=== PATIENT | female | born 1960 | race Caucasian/White ===

== ENCOUNTER → 2022-05-07 | Day surgery (SDC) | payer MEDICARE, OTHER ==
[~2022-05-07] VITALS: Ht 162.6 cm; Wt 59.1 kg
[~2022-05-07] MED LIST: ASPIRIN EC81 MG PO; ATORVASTATIN CA80 MG PO; BUSPAR5 MG PO; DICLOFENAC SODI75 MG PO; DULOXETINE HCL60 MG PO; GABAPENTIN300 MG PO; LEVOTHYROXINE125 MCG PO; LISINOPRIL5 MG PO; METHOCARBAMOL500 MG PO; MOTEGRITY2 MG PO; NEURONTIN300 MG PO; OMEPRAZOLE 20MG20 MG PO; PROBIOTIC1 EACH PO; PROLIA60 MG/1 ML IM; STOOL SOFTENER100 M1 PO; TRAMADOL HCL50 MG PO
[2022-05-07 12:54] LABS: HCT 44.5 % (37.0-47.0); HGB 14.3 g/dl (12.5-16.0); MCH 30.6 pg (25.0-31.0); MCHC 32.1 g/dL (32.0-36.0); MCV 95.1 fL (78.0-100.0); MPV 10.6 fL (6.0-9.5); RBC 4.68 M/uL (4.20-5.40); RDW 13.4 % (11.5-14.0); WBC 5.6 K/uL (4.0-10.5)
[2022-05-07 13:25] LABS: BILIRUBIN - TOTAL 0.4 mg/dL (0.2-1.0); BUN/CREAT RATIO (CALC) 18.9 RATIO; CREATININE 0.74 mg/dL (0.51-0.95); GLOBULIN (CALCULATION) 3.4 g/dL; POTASSIUM 4.2 mmol/L (3.5-5.1); TOTAL PROTEIN 7.4 g/dL (6.4-8.2)
== END | disposition home or self-care (01) ==
LOC: FAS 11:15
PROVIDERS: Orthopaedic Surgery
DX: G56.02 Carpal tunnel syndrome, left upper limb (principal); E78.5 Hyperlipidemia, unspecified; I25.2 Old myocardial infarction; Z87.891 Personal history of nicotine dependence; Z95.5 Presence of coronary angioplasty implant and graft; Z79.82 Long term (current) use of aspirin; Z79.899 Other long term (current) drug therapy
CPT/HCPCS: 36415; 80053; J1100; J2250; J2405; J2704; J3010; J7120